=== PATIENT | male | born 1975 | race Caucasian/White ===

== ENCOUNTER 2019-03-06 19:34 | Emergency (ER) | payer OTHER ==
[~2019-03-06] VITALS: Ht 170.2 cm; Wt 99.8 kg
[2019-03-06] MEDS ORDERED: TRAMADOL 50 MG50 MG PO (20:56)
[2019-03-06] MEDS ORDERED: LIDOCAINE VISC100 ML SWISH&SPIT (20:56)
[2019-03-06 21:18] VITALS: BP 155/101
== END 2019-03-06 21:19 | disposition home or self-care (01) ==
LOC: M.ERS 19:34
DX: K04.7 Periapical abscess without sinus (principal)